=== PATIENT | male | born 1970 | race Caucasian/White ===

== ENCOUNTER 2018-03-15 08:32 | Emergency (ER) | payer BC ==
[~2018-03-15] VITALS: Ht 172.7 cm; Wt 79.4 kg
[2018-03-15 08:47] VITALS: BP 121/76
--- NOTE | 2018-03-15 08:56 | PHYS DOC ---
Adult General Chief Complaint Chief Complaint: MECHANICAL FALL HPI HPI Patient is a 47 year old male with history of glaucoma who presents today complaining of a slight headache, facial pain and left knee pain after falling. 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 Patient states he believes he passed out for possibly 7 minutes though the is in the ED and states he did not pass out for that long. He also has a broken tooth. Denies being on any anticoagulants. Patient denies any neck pain, denies any mid and low back pain. Review of Systems Review of Systems Constitutional: Denies fever or chills [] Eyes: Denies change in visual acuity, redness, or eye pain [] HENT: Reports facial injury. Denies nasal congestion or sore throat [] Respiratory: Denies cough or shortness of breath [] Cardiovascular: No additional information not addressed in HPI [] GI: Denies abdominal pain, nausea, vomiting, bloody stools or diarrhea [] : Denies dysuria or hematuria [] Musculoskeletal: Reports left knee pain Integument: Denies rash or skin lesions [] Neurologic: Reports head injury, headache, denies focal weakness or sensory changes [] All other systems were reviewed and found to be within normal limits, except as documented in this note. Current Medications Current Medications Current Medications Medications (Trade) Dose Ordered Sig/Erika Start Time Stop Time Status Last Admin Dose Admin Acetaminophen (Tylenol) 500 mg 1X ONCE 03/15/18 09:30 03/15/18 09:31 DC 03/15/18 09:15 500 MG Diphtheria/ Tetanus/Acell Pertussis (Boostrix) 0.5 ml ONCE ONCE 03/15/18 09:30 03/15/18 09:31 DC 03/15/18 09:18 0.5 ML Allergies Allergies Allergies Coded Allergies Type Severity Reaction Last Updated Verified codeine Allergy Intermediate 03/15/18 Yes Physical Exam Physical Exam Constitutional: Well developed, well nourished, no acute distress, non-toxic appearance. [] HENT: Bruising noted on the left cheek, left forehead, tooth #9 is chipped at the tip. Normocephalic bilateral external ears normal, oropharynx moist, no oral exudates, nose normal. [] Eyes: PERRLA, EOMI, conjunctiva normal, no discharge. [] Neck: Normal range of motion, no tenderness, supple, no stridor. [] Cardiovascular:Heart rate regular rhythm, no murmur [] Lungs & Thorax: Bilateral breath sounds clear to auscultation [] Abdomen: Bowel sounds normal, soft, no tenderness, no masses, no pulsatile masses. [] Skin: Warm, dry, no erythema, no rash. [] Back: No tenderness, no CVA tenderness. [] Extremities: Left knee with mild soft tissue swelling and bruising on anterior aspect of the knee. Patella tenderness on physical exam. Full range of motion to the left knee. Negative Nohemy sign and negative Maryjo's sign negative anterior-posterior drawer sign. +2 left pedal pulse. Cap refill less than 2 seconds the left lower extremity. Sensation intact to the left lower extremity. Neurologic: Alert and oriented X 3, normal motor function, normal sensory function, no focal deficits noted. Cranial nerves II through XII intact. Psychologic: Affect normal, judgement normal, mood normal. [] Current Patient Data Vital Signs Vital Signs Date Time Temp Pulse Resp B/P (MAP) Pulse Ox O2 Delivery O2 Flow Rate FiO2 03/15/18 08:47 98.0 73 18 121/76 (91) 99 Room Air 98.0 EKG EKG [] Radiology/Procedures Radiology/Procedures []PROCEDURE: KNEE LEFT 3V EXAM: AP, oblique and lateral views of the left knee DATE: 03/15/2018 8:54 AM INDICATION: LEFT KNEE PAIN AFTER FALL ON ICE, ABRASIONS ON ANTERIOR KNEE. COMPARISON: No Prior FINDINGS/ IMPRESSION: No evidence of acute fracture or dislocation. Moderate prepatellar soft tissue swelling. No knee joint effusion. Electronically signed by: Dilshad Ambriz MD (03/15/2018 9:23 AM) [id number] DICTATED and SIGNED BY: DILSHAD AMBRIZ MD DATE: 03/15/18 0922 PROCEDURE: CT HEAD AND MAXILLOFACIAL WO EXAM: CT Head without IV contrast CLINICAL HISTORY: FELL THIS AM WITH HEAD AND FACIAL INJURY, POSSIBLE LOC. COMPARISON: None. TECHNIQUE: Routine CT of the head without contrast. PQRS compliance statement - One or more of the following individualized dose reduction techniques were utilized for this study: 1. Automated exposure control 2. Adjustment of the mA and/or kV according to patient size 3. Use of iterative reconstruction technique FINDINGS: There is no evidence of hemorrhage, mass or extra-axial fluid collection. Motta-white differentiation is maintained with no evidence of edema. There is no mass effect or shift of the intracranial structures. The ventricles, basilar cisterns and cortical sulci are normal in size and configuration for the patients stated age. The cerebellum and brainstem are unremarkable. The calvarium demonstrates no evidence of fracture or focal lesion. The visualized portions of the orbits are normal. Moderate soft tissue swelling seen overlying the left frontal region. IMPRESSION: 1. No evidence for acute intracranial process. EXAM: CT facial bones without contrast CLINICAL HISTORY: FELL THIS AM WITH HEAD AND FACIAL INJURY, POSSIBLE LOC. COMPARISON: None available. TECHNIQUE: Helical CT of the face/paranasal sinuses was acquired without IV contrast and axial, coronal and sagittal reformatted images were generated. ---PQRS compliance statement - One or more of the following individualized dose reduction techniques were utilized for this study: 1. Automated exposure control 2. Adjustment of the mA and/or kV according to patient size 3. Use of iterative reconstruction technique--- FINDINGS: No definite fracture is noted of the facial bones. Soft tissue swelling is seen overlying the left frontal region. Mucosal thickening of the maxillary sinuses may be seen with sinusitis. No evidence of air-fluid levels. The mastoids are unremarkable. The globes, extraocular muscles, optic nerves and retrobulbar fat are normal. Visualized upper aerodigestive tract is normal. Mandible and bilateral temporomandibular joints are normal. IMPRESSION: 1. Soft tissue swelling overlying the left frontal region without associated fracture or dislocation of the facial bones. 2. Mild bilateral maxillary sinus mucosal thickening, may be seen with sinusitis. Electronically signed by: Dilshad Ambriz MD (03/15/2018 9:59 AM) [id number] DICTATED and SIGNED BY: DILSHAD AMBRIZ MD DATE: 03/15/18 0946 Course & Med Decision Making Course & Med Decision Making Pertinent Labs and Imaging studies reviewed. (See chart for details) This is a 47-year-old male patient presented to the ED today to be evaluated status post falling patient appears to have bruising on the left cheek, left forehead, and a chipped tooth #9. Instructed to see a dentist for the tooth repair.[] CT of the head and maxillofacial is negative for any acute findings, noted for sinusitis. Patient states he has had nasal congestion for a couple weeks. We will put patient on Augmentin. Left knee x-rays interpreted by radiologist are negative for any acute findings, noted for prepatellar swelling. Patient was provided Hugo bandage for the left knee. Ice elevation encouraged. Dragon Disclaimer Dragon Disclaimer This electronic medical record was generated, in whole or in part, using a voice recognition dictation system. Departure Departure Impression: Primary Impression: Fall from standing Additional Impressions: Facial contusion Closed head injury Left knee sprain Acute sinusitis Disposition: 01 HOME, SELF-CARE Condition: STABLE Referrals: SONA HIGHTOWER (PCP) Follow-up with the primary care doctor in 1-2 weeks as well as your dentist Patient Instructions: Contusion, [id number], Fall Prevention and Home Safety , Head Injury, Adult, Sinusitis Additional Instructions: You were evaluated in the emergency room after falling. Your CT of the head and face were negative for any acute findings, you were noted to have a sinus infection. We put you on antibiotics, ensure you complete them. You have left knee swelling. Apply the Hugo bandage provided to the knee. Try to keep it iced and elevated. Take Tylenol/ Motrin for pain. Follow-up with the dentist for the chipped tooth. Scripts Amoxicillin/Potassium Clav (AUGMENTIN 875-125 TABLET) 1 Each Tablet 1 TAB PO BID, #20 TAB Prov: NURY HOLT [employer] 03/15/18 Problem Qualifiers Primary Impression: Fall from standing Encounter type: initial encounter Qualified Codes: W19.XXXA - Unspecified fall, initial encounter Additional Impressions: Facial contusion Encounter type: initial encounter Qualified Codes: S00.83XA - Contusion of other part of head, initial encounter Closed head injury Encounter type: initial encounter Qualified Codes: S09.90XA - Unspecified injury of head, initial encounter Left knee sprain Encounter type: initial encounter Involved ligament of knee: unspecified ligament Qualified Codes: S83.92XA - Sprain of unspecified site of left knee, initial encounter Acute sinusitis Sinusitis location: maxillary Recurrence: not specified as recurrent Qualified Codes: J01.00 - Acute maxillary sinusitis, unspecified NURY HOLT APRN Mar 15, 2018 08:56
[2018-03-15] MEDS: ACETAMINOPHEN 500 MG TABLET PO ONE (09:15)
[2018-03-15] MEDS: DIPHTH,PERTUSS(ACELL),TET TOX 0.5 ML DISP.SYRIN. VAX IM ONE (09:18)
--- NOTE | 2018-03-15 09:28 | RAD ---
EXAM: AP, oblique and lateral views of the left knee DATE: 03/15/2018 8:54 AM INDICATION: LEFT KNEE PAIN AFTER FALL ON ICE, ABRASIONS ON ANTERIOR KNEE. COMPARISON: No Prior FINDINGS/ IMPRESSION: No evidence of acute fracture or dislocation. Moderate prepatellar soft tissue swelling. No knee joint effusion. Electronically signed by: Dilshad Ambriz MD (03/15/2018 9:23 AM) [id number]
--- NOTE | 2018-03-15 10:04 | RAD ---
EXAM: CT Head without IV contrast CLINICAL HISTORY: FELL THIS AM WITH HEAD AND FACIAL INJURY, POSSIBLE LOC. COMPARISON: None. TECHNIQUE: Routine CT of the head without contrast. PQRS compliance statement - One or more of the following individualized dose reduction techniques were utilized for this study: 1. Automated exposure control 2. Adjustment of the mA and/or kV according to patient size 3. Use of iterative reconstruction technique FINDINGS: There is no evidence of hemorrhage, mass or extra-axial fluid collection. Motta-white differentiation is maintained with no evidence of edema. There is no mass effect or shift of the intracranial structures. The ventricles, basilar cisterns and cortical sulci are normal in size and configuration for the patients stated age. The cerebellum and brainstem are unremarkable. The calvarium demonstrates no evidence of fracture or focal lesion. The visualized portions of the orbits are normal. Moderate soft tissue swelling seen overlying the left frontal region. IMPRESSION: 1. No evidence for acute intracranial process. EXAM: CT facial bones without contrast CLINICAL HISTORY: FELL THIS AM WITH HEAD AND FACIAL INJURY, POSSIBLE LOC. COMPARISON: None available. TECHNIQUE: Helical CT of the face/paranasal sinuses was acquired without IV contrast and axial, coronal and sagittal reformatted images were generated. ---PQRS compliance statement - One or more of the following individualized dose reduction techniques were utilized for this study: 1. Automated exposure control 2. Adjustment of the mA and/or kV according to patient size 3. Use of iterative reconstruction technique--- FINDINGS: No definite fracture is noted of the facial bones. Soft tissue swelling is seen overlying the left frontal region. Mucosal thickening of the maxillary sinuses may be seen with sinusitis. No evidence of air-fluid levels. The mastoids are unremarkable. The globes, extraocular muscles, optic nerves and retrobulbar fat are normal. Visualized upper aerodigestive tract is normal. Mandible and bilateral temporomandibular joints are normal. IMPRESSION: 1. Soft tissue swelling overlying the left frontal region without associated fracture or dislocation of the facial bones. 2. Mild bilateral maxillary sinus mucosal thickening, may be seen with sinusitis. Electronically signed by: Dilshad Ambriz MD (03/15/2018 9:59 AM) [facility]
[2018-03-15] MEDS ORDERED: AMOX1TAB61 PO (10:39)
== END 2018-03-15 10:41 | disposition home or self-care (01) ==
LOC: ER 08:32
DX: S83.8X2A Sprain of other specified parts of left knee, initial encounter (principal); S00.83XA Contusion of other part of head, initial encounter; J01.00 Acute maxillary sinusitis, unspecified; Z88.5 Allergy status to narcotic agent; W18.39XA Other fall on same level, initial encounter; Y93.01 Activity, walking, marching and hiking; Y92.59 Other trade areas as the place of occurrence of the external cause; Y99.8 Other external cause status
CPT/HCPCS: 70450; 70486; 73562; 90471; 90715; 99284